=== PATIENT | female | born 1990 | race Caucasian/White ===

== ENCOUNTER → 2016-11-04 | Outpatient (CLI) | payer BC, OTHER ==
[~2016-11-04] MED LIST: DROS1TAB21 PO; GLGKIT; INSPMPHMLG; LANTUS 100 UNIT/ML XX
[2016-11-04 13:36] LABS: ESTIMATED AVERAGE GLUCOSE 148 mg/dl; HA1C FLAG Normal (Normal)
== END | disposition home or self-care (01) ==
LOC: C.LAB1850 10:32
PROVIDERS: ATTEND Physician Assistant
DX: E10.9 Type 1 diabetes mellitus without complications (principal)

== ENCOUNTER → 2017-02-28 | Outpatient (CLI) | payer BC, OTHER ==
[2017-03-01 05:58] LABS: ESTIMATED AVERAGE GLUCOSE 163 mg/dl; HA1C FLAG Normal (Normal)
== END | disposition home or self-care (01) ==
LOC: C.LAB1850 12:44
PROVIDERS: ATTEND Physician Assistant
DX: E10.9 Type 1 diabetes mellitus without complications (principal)

== ENCOUNTER → 2017-05-22 | Outpatient (CLI) | payer BC, OTHER | END | disposition home or self-care (01) | LOC: C.PAPS 11:17 | PROVIDERS: ATTEND Obstetrics & Gynecology | DX: Z01.419 Encounter for gynecological examination (general) (routine) without abnormal findings (principal) ==

== ENCOUNTER → 2017-07-06 | Outpatient (CLI) | payer OTHER ==
[2017-07-06 12:26] LABS: HEMOGLOBIN A1C 6.8 % (4.5-5.6)
[2017-07-06 13:36] LABS: ALBUMIN 3.3 gm/dl (3.4-5.0); ALT/SGPT 20 U/L (12-78); AST/SGOT 14 U/L (15-37); BLOOD UREA NITROGEN 10 mg/dl (7-18); CALCIUM 8.6 mg/dl (8.5-10.1); CARBON DIOXIDE 28 mmol/L (21-32); CREATININE 0.81 mg/dl (0.60-1.20); GLUCOSE 89 mg/dl (70-99); POTASSIUM 3.8 mmol/L (3.5-5.1); SODIUM 137 mmol/L (136-145)
[2017-07-06 13:47] LABS: ALKALINE PHOSPHATASE 67 U/L (45-117); CHOLESTEROL 159 mg/dl (0-200); LDL CHOLESTEROL CALCULATED 68 mg/dl; TOTAL PROTEIN 7.7 gm/dl (6.4-8.2)
== END | disposition home or self-care (01) ==
LOC: C.LAB1850 09:50
PROVIDERS: ATTEND Physician Assistant
DX: E10.9 Type 1 diabetes mellitus without complications (principal)

== ENCOUNTER 2019-05-03 23:16 | Inpatient (IN) ==
[2019-05-03] MEDS ORDERED: LACTATED RINGER'S 1,000 ML IV PRN (23:40)
[2019-05-03] MEDS ORDERED: BETAMETH SOD PHOS/ACETATE IA 6 MG/ML IM STA (23:42)
--- NOTE | 2019-05-03 23:50 | History & Physical Report ---
Date of Service May 03, 2019 Assessment & Plan (1) premature rupture of membranes (PPROM) delivered, current ho spitalization: 27 weeks and 6 days gestation first baby premature rupture of membranes. heart rate tracing is reassuring at this time her cervix appears closed I have not digitally checked the cervix on ultrasound baby is in breech position. Spoke with [facility] and spoke with maternal- medicine and excepting doctors antibiotics given steroids initiated RhoGam given due to the bleeding and we will attempt to fly the patient HO[facility] to [facility] History of Present Illness Primary Care Provider: 27+ weeks presents with spontaneous rupture of membranes and then bleeding at 11 PM tonight she noticed a large gush of fluid that ran down her legs she rapidly went to the hospital and presented at that time I assessed her and she was having some significant bleeding this did subside it was difficult to a separate test for rupture of membranes however there was a large amount of fluid he was ferning negative but am not sure positive patient is not feeling contractions she states her baby is moving she has no significant contraction activity. Her has been complicated by type 1 diabetes she has had a normal echo and ultrasounds she is Rh- is dated by her last menstrual period and an ultrasound done by 1 of my partners that was within 5 days of her due date at 8 weeks. Allergies Allergy/AdvReac Type Severity Reaction Status Date / Time No Known Drug Allergies Allergy Verified 04/08/19 16:05 Home Medications Home Medications Medication Instructions Recorded Confirmed Type prenat.vits,gavin,lpi-spfj-woqdb 1 tab PO DAILY #30 tab 11/20/18 04/08/19 Rx blood sugar diagnostic ea 01/17/19 04/08/19 History blood-glucose sensor ea 01/17/19 04/08/19 History glucagon (human recombinant) 1 mg 1 mg SQ .COMPLEX PRN ea 01/17/19 04/08/19 History solution for injection insulin aspart U-100 100 100 60 units SQ .COMPLEX ml 01/17/19 04/08/19 History unit/mL subcutaneous solution ketone blood test ea 01/17/19 04/08/19 History magnesium oxide 400 mg (as 400 mg PO DAILY cap 01/17/19 04/08/19 History magnesium oxide) capsule Patient History Medical History (Updated 05/04/19 @ 00:03 by Kimberlee Cruz MD, FACOG) History of varicella Surgical History (Updated 01/28/19 @ 11:00 by Do Walter) History of dental surgery S/P wisdom tooth extraction Family History (Updated 12/05/18 @ 15:31 by SAPPHIRE Bradford) Father Hypertension Grandmother (Paternal) Stroke Grandfather (Paternal) Diabetes Type I Mother Cholelithiasis Dyslipidemia Grandfather (Maternal) Lung cancer Dementia Cholelithiasis Grandmother (Maternal) Cholelithiasis Thyroid disease Social History Visual Impairment: No Limitations Hearing Ability: Normal marital status: Single current occupational status: employed Smoking Status: Never smoker Hx Alcohol Use: No Hx Substance Use: No Dental Care, Regularly: Yes Physical Activity Frequency: Does not Exercise Physical Exam Genitourinary: Speculum/Bimanual Exam: normal appearance of the vagina (Sterile speculum exam is performed there is blood in the vagina AmniSure positive cervix appears closed) Results & Data Vital Signs (Past 12 Hours) Vital Signs Temp Pulse BP 05/03/19 23:30 98.6 F 93 H 137/87
[2019-05-04] MEDS ORDERED: AMPICILLIN 2,000 MG in SODIUM CHLOR 0.9% AD-VAN 100 ML IV STA (00:01)
[2019-05-04 00:02] LABS: Hematocrit (blood only) 36.8 % (37-47); Hemoglobin 12.9 g/dL (12.0-16.0); Mean Corpuscular Hemoglobin 30.5 pg (25-34); Mean Platelet Volume 9.2 fL (7.4-10.4); Platelet Count 309 K/uL (130-400); RDW Coefficient of Variation 12.6 % (11.5-14.5); RDW Standard Deviation 40.5 fL (36.4-46.3); Red Blood Count 4.23 M/uL (4.2-5.4); White Blood Count 15.24 K/uL (4.8-10.8)
[2019-05-04 00:05] LABS: Mean Corpuscular Hgb Conc 35.1 g/dL (32-36)
[2019-05-04] MEDS ORDERED: ERYTHROMYCIN 250 MG in SODIUM CHLORIDE 0.9% 250 ML IV ONE (00:15)
[2019-05-04] MEDS ORDERED: SUPERCREAM 0.870% 15 GM JAR EXT PRN (01:47)
[2019-05-04] MEDS ORDERED: DIPHTHERIA/TETANUS/PERTUSSIS 0.5 ML SYR/VIAL IM ONE (01:47)
[2019-05-04] MEDS ORDERED: OXYTOCIN 30 UNITS/500 ML BAG IV PRN (01:47)
[2019-05-04] MEDS ORDERED: BENZOCAINE 20% AER SPR 82.5 GM CAN EXT PRN (01:47)
[2019-05-04] MEDS ORDERED: BISACODYL 10 MG SUPP PR PRN (01:47)
[2019-05-04] MEDS ORDERED: ACETAMINOPHEN 325 MG TAB PO PRN (01:47)
[2019-05-04] MEDS ORDERED: OXYCODONE/ACETAMINOPHEN 5mg/325mg TAB PO PRN (01:47)
[2019-05-04] MEDS ORDERED: IBUPROFEN 600 MG TAB PO PRN (01:47)
[2019-05-04] MEDS ORDERED: HYDROCORTISONE ACETATE 25 MG SUPP PR PRN (01:47)
--- NOTE | 2019-05-04 01:51 | Delivery Summary ---
Vaginal Delivery Summary Date of Service May 04, 2019 Patient presented at 35 weeks and 5 days with contractions her cervix changed f rom 1 cm to 4 cm she was given steroids and IV antibiotics on SPECT for group B strep status unknown she received an epidural and that rapidly progressed to fully dilated at that time her water broke and it was significantly blood-tinged examined her she was fully dilated she pushed over a grand total of 1 contraction and delivered a baby in occiput anterior position mouth and then nares were suctioned gentle traction no nuchal cord no excessive force live vigorous cord clamped and cut cord gases obtained cord blood obtained placenta removed it did appear there was an abruption as there were clots afterwards there was a velamentous insertion of the placenta as well. Small second-degree tear repaired with 3-0 Vicryl we did start oxytocin as well after delivery of the placenta sponge and instrument counts were correct estimate of blood loss 400 mL
[2019-05-04] MEDS ORDERED: DOCUSATE SODIUM 100 MG CAP PO SCH (08:00)
[2019-05-04] MEDS ORDERED: PRENATAL VITAMIN 1 TAB PO SCH (08:00)
[2019-05-05] MEDS ORDERED: BISACODYL 5 MG TABEC PO SCH (20:00)
--- NOTE | 2019-05-07 09:51 | Discharge Summary ---
Date of Service May 07, 2019 Admission Exam (Per Admitting) Genitourinary Speculum/Bimanual Exam: normal appearance of the vagina (Sterile speculum exam is performed there is blood in the vagina AmniSure positive cervix appears closed) Hospital Course (1) premature rupture of membranes (PPROM) delivered, current hospitalization: 27 weeks and 6 days gestation first baby premature rupture of memb dolores. heart rate tracing is reassuring at this time her cervix appears closed I have not digitally checked the cervix on ultrasound baby is in breech position. Spoke with [facility] and spoke with maternal- medicine and excepting doctors antibiotics given steroids initiated RhoGam given due to the bleeding and we will attempt to fly the patient HOLLIS to [facility] Note, patient was in our institution for only a few hours as needed transfer for access to NICU
== END 2019-05-04 01:12 | disposition short-term general hospital (02) | DRG 833 ==
LOC: OR 23:16 → 4S1 23:16